=== PATIENT | female | born 2000 | race Caucasian/White ===

== ENCOUNTER 2020-07-18 22:07 | Emergency (ER) | payer OTHER ==
[~2020-07-18] VITALS: Ht 167.7 cm; Wt 47.6 kg
[2020-07-18 22:13] VITALS: BP 140/88
[2020-07-18 22:32] LABS: BACTERIA,URINE TRACE /HPF; BILIRUBIN,URINE 1+ (NEGATIVE); CLARITY,URINE CLOUDY; COLOR,URINE RED; GLUCOSE, URINE (UA) NEGATIVE (NEGATIVE); KETONES,URINE NEGATIVE (NEGATIVE); LEUKOCYTE ESTERASE ,URINE TRACE (NEGATIVE); NITRITE,URINE POSITIVE (NEGATIVE); PROTEIN,URINE 3+ (NEGATIVE); RBC,URINE TNTC /HPF; SQUAMOUS EPITHELIAL CELL,UR RARE /HPF
[2020-07-18] MEDS ORDERED: DOXYCYCLINE 100 MG (VIBRAMYCIN) TABLET PO STA (22:41)
[2020-07-18] MEDS ORDERED: HYDROcodone/APAP 5 MG/325 MG (LORTAB) TAB PO ONE (22:45)
--- NOTE | 2020-07-18 22:56 | ED GU-Female ---
General Chief Complaint: - Urinary Stated Complaint: BLOOD IN URINE,PAIN IN LEGS Nursing Triage Note: Pt arrived by private vehicle with boyfriend with chief complaint of blood in urine and leg pain. Pt was alert, oriented x 4 and ambulatory on arrival. Pt ambulated to restroom to give urine sample with was very little amount and was red. After urine sample, pt ambulated to room 2 where her vital signs were done. Pt stated 2-3 hours ago, pt started having burnig and aching when urinating which causes pain to be a 7 on pain scale. When sitting there he pain is a 4 due to pressure. Pt wanted to take a Azo, physician was asked and he stated that was fine. Pt stated she started having thigh pain around the same time the blood in urine and pain when urinating. Pt stated she doesn't think she could be , because she is on control. She stated she hasn't had a period in a year because she multi-cycling. Pt denies PMH and surgical history. Pt has no allergies. Pt denies smoking/tobacco use. Pt occassional drinks alcohol and uses marijuana. Nursing Sepsis Screen: No Definite Risk Source: patient, certified court/medical interpreter History of Present Illness Date Seen by Provider: Jul 18, 2020 Time Seen by Provider: 20:15 Initial Comments Patient with dysuria, urinary frequency urgency and burning and hematuria starting 3 hours prior to ED arrival. Her pain is sharp and rated moderate to severe No fever chills, nausea vomiting or sweats. No flank pain, history of kidney stones or kidney infections. Patient has not had menstrual period in over one year due to multi-cycle oral contraceptive pill. No vaginal discharge. No other acute symptoms or complaints. Timing/Duration: just prior to arrival Severity/Quality: moderate Location: suprapubic Radiation: none Activities at Onset: none Prior Genitourinary Problems: none Sexual Metaline History: less than 2 months ago Associated Symptoms: dysuria Allergies and Home Medications Allergies Coded Allergies: No Known Drug Allergies (Unverified , 07/18/20) Patient Home Medication List Home Medication List Reviewed: Yes Review of Systems Review of Systems Constitutional: see HPI EENTM: see HPI Respiratory: see HPI Cardiovascular: see HPI Gastrointestinal: see HPI Genitourinary: see HPI Musculoskeletal: see HPI Skin: see HPI Psychiatric/Neurological: See HPI Endocrine: See HPI Hematologic/Lymphatic: See HPI Past Uwaicdx-Arkjkd-Ebniaa Hx Past Med/Social Hx: Reviewed Nursing Past Med/Soc Hx Patient Social History Alcohol Use: Occasionally Uses Recreational Drug Use: Yes (Marijuana) Smoking Status: Never a Smoker 2nd Hand Smoke Exposure: No Recent Foreign Travel: No Contact w/Someone Who Travel: No Recent Infectious Disease Expo: No Recent Hopitalizations: No Physical Abuse: No Sexual Abuse: No Mistreated: No Fear: No Seasonal Allergies Seasonal Allergies: No Past Medical History Surgeries: No Respiratory: No Cardiac: No Neurological: No Genitourinary: No Gastrointestinal: No Musculoskeletal: No Endocrine: No HEENT: No Cancer: No Psychosocial: No Integumentary: No Blood Disorders: No Physical Exam Vital Signs Vital Signs - First Documented 07/18/20 22:13 Temp 36.6 Pulse 86 Resp 16 B/P (MAP) 140/88 (105) Pulse Ox 96 O2 Delivery Room Air Capillary Refill : Less Than 3 Seconds Height, Weight, BMI Height: '" Weight: lbs. oz. kg; 16.00 BMI Method: General Appearance: WD/WN, no apparent distress HEENT: PERRL/EOMI, normal ENT inspection Neck: non-tender, full range of motion, supple Cardiovascular: regular rate, rhythm Respiratory: chest non-tender, lungs clear Gastrointestinal: soft, other (suprapubic pain) Back: normal inspection, no CVA tenderness Extremities: normal range of motion, non-tender Neurologic/Psychiatric: body sander II-XII nml as tested, alert, oriented x 3 Skin: normal color, warm/dry Focused Exam Sepsis Stage: Ruled Out Progress/Results/Core Measures Suspected Sepsis Recent Fever Within 48 Hours: No Infection Criteria Present: Suspected New Infection New/Unexplained Altered Menta: No Sepsis Screen: No Definite Risk SIRS Temperature: Pulse: 86 Respiratory Rate: 16 Blood Pressure 140 /88 Mean: 105 Results/Orders Lab Results Laboratory Tests Test 07/18/20 10:15 Range/Units Urine Color RED H Urine Clarity CLOUDY Urine pH 7.0 5-9 Urine Specific [place] 1.025 H 1.016-1.022 Urine Protein 3+ H NEGATIVE Urine Glucose (UA) NEGATIVE NEGATIVE Urine Ketones NEGATIVE NEGATIVE Urine Nitrite POSITIVE H NEGATIVE Urine Bilirubin 1+ H NEGATIVE Urine Urobilinogen 1.0 < = 1.0 MG/DL Urine Leukocyte Esterase TRACE H NEGATIVE Urine RBC (Auto) 3+ H NEGATIVE Urine RBC TNTC H /HPF Urine WBC 10-25 H /HPF Urine Squamous Epithelial Cells RARE /HPF Urine Crystals NONE /LPF Urine Bacteria TRACE /HPF Urine Casts NONE /LPF Urine Mucus NEGATIVE /LPF Urine Culture Indicated YES Urine Test NEGATIVE NEGATIVE My Orders Orders - UJANITO ORTEZ Urinalysis (07/18/20 22:15) Hcg,Qualitative Urine (07/18/20 22:15) Urine Culture (07/18/20 10:15) Doxycycline Hyclate Tablet (Vibramycin T (07/18/20 22:41) Hydrocodone/Apap 5/325 Tablet (Lortab 5 (07/18/20 22:45) Vital Signs/I&O 07/18/20 22:13 Temp 36.6 Pulse 86 Resp 16 B/P (MAP) 140/88 (105) Pulse Ox 96 O2 Delivery Room Air Capillary Refill : Less Than 3 Seconds Blood Pressure Mean: 105 Departure Communication (Admissions) Urinary tract infection without systemic symptoms or flank pain. Oral antibiotics pain medication given. Abx prescribed. Recommend watchful waiting, supportive care and PCP follow-up. Impression Primary Impression: Urinary tract infection Disposition: 01 HOME, SELF-CARE Condition: Stable Departure-Patient Inst. Referrals: NO,LOCAL PHYSICIAN (PCP) Primary Care Physician Patient Instructions: Urinary Tract Infection, Adult (DC) Add. Discharge Instructions: Please increase fluids and take antibiotics as directed. Take Azo and ibuprofen OTC as needed for pain. Follow-up with your PCP in 3-5 days for reevaluation if symptoms persist. Return to the ED if new or worsening symptoms. All discharge instructions reviewed with patient and/or family. Voiced understanding. Scripts Doxycycline Hyclate (Doxycycline Hyclate) 100 Mg Tablet 100 MG PO BID, #20 TAB 0 Refills Prov: JUANITO ORTEZ 07/18/20 JUANITO ORTEZ DO Jul 18, 2020 22:56
[2020-07-18] MEDS ORDERED: DOXY100T2 PO (23:00)
== END 2020-07-18 23:03 | disposition home or self-care (01) ==
LOC: ER FS 22:09
DX: N39.0 Urinary tract infection, site not specified (principal)
CPT/HCPCS: 81000; 84703; 87077; 87088; 99283